=== PATIENT | male | born 1960 | race Caucasian/White ===

== ENCOUNTER 2018-04-09 02:18 | Emergency (ER) | payer SELFPAY ==
[~2018-04-09] VITALS: Ht 170.2 cm; Wt 88.0 kg
[~2018-04-09 02:18] MED LIST: LISI10TA3 PO; MUPI2%T TOPICAL
[2018-04-09 02:21] VITALS: BP 140/78; PULSE 78; RESP 20; TEMP 97.4; O2SAT 94
--- NOTE | 2018-04-09 02:34 | PD ---
HPI Chief Complaint: Respiratory Symptoms Time Seen by Provider: 02:31 Travel History International Travel<30 days: No Contact w/Intl Traveler<30days: No Traveled to known affect area: No History of Present Illness HPI 57-year-old male presents complaining of "bronchitis." He reports that he has a chronic cough for the past 4 months. Over the past several days the cough has become worse. The cough is primarily dry but occasionally productive with clear sputum. Associated wheezing. Symptoms are moderate with no aggravating or relieving factors. Denies any chest pain, shortness of breath, abdominal pain, fevers or chills. He has no other complaints at this time. PFSH Past Medical History Blood Disorders: No Cancer: No Cardiovascular Problems: Yes (HTN) Chemotherapy: No Diminished Hearing: No Hypertension: Yes Immune Disorder: No Kidney Stones: Yes Musculoskeletal: No Neurologic: No Psychiatric: No Reproductive: No Respiratory: No Immunizations Current: Yes Radiation Therapy: No Tetanus Vaccination: Unknown Influenza Vaccination: No : 3 Para: 2 Past Surgical History Surgical History: No Previous Surgery AICD: No Arteriovenous Shunt: No Insulin Pump: No Joint Replacement: No Pacemaker: No Other Surgery: Yes Social History Alcohol Use: Yes (ONCE A WEEK) Tobacco Use: Yes (1PPD) Substance Use: Yes (MARIJUANA) Allergies-Medications (Allergen,Severity, Reaction): Coded Allergies: No Known Allergies (Verified Adverse Reaction, Unknown, 04/09/18) Reported Meds & Prescriptions Reported Meds & Active Scripts Active Proair Hfa 8.5 GM Inh (Albuterol Sulfate) 90 Mcg/Act Aer 2 Puff INH Q4-6H PRN 108 mcg/actuation Azithromycin 250 Mg Tab 250 Mg PO DIRECTED Take 2 tabs (500 mg) on day 1 then 1 tab daily x 4 days. Prednisone 20 Mg Tab 20 Mg PO BID 5 Days Reported Lisinopril 10 Mg Tab 10 Mg PO DAILY Review of Systems Except as stated in HPI: all other systems reviewed are Neg Physical Exam Narrative GENERAL: Well-developed well-nourished male in no acute distress SKIN: Warm and dry. HEAD: Atraumatic. Normocephalic. EYES: Pupils equal and round. No scleral icterus. No injection or drainage. ENT: No nasal bleeding or discharge. Mucous membranes pink and moist. NECK: Trachea midline. No JVD. CARDIOVASCULAR: Regular rate and rhythm. No murmur appreciated. RESPIRATORY: No accessory muscle use. Mild wheezing bilaterally. No crackles. GASTROINTESTINAL: Abdomen soft, non-tender, nondistended. Hepatic and splenic margins not palpable. MUSCULOSKELETAL: No obvious deformities. No clubbing. No cyanosis. No edema. NEUROLOGICAL: Awake and alert. No obvious cranial nerve deficits. Motor grossly within normal limits. Normal speech. PSYCHIATRIC: Appropriate mood and affect; insight and judgment normal. Data Data Last Documented VS Vital Signs Date Time Temp Pulse Resp B/P (MAP) Pulse Ox O2 Delivery O2 Flow Rate FiO2 04/09/18 02:21 97.4 78 20 140/78 (98) 94 Orders Orders Albuterol-Ipratropium Neb (Duoneb Neb) (04/09/18 02:45) Prednisone (Deltasone) (04/09/18 02:45) Ed Discharge Order (04/09/18 03:42) [facility] Medical Decision Making Medical Screen Exam Complete: Yes Emergency Medical Condition: Yes Medical Record Reviewed: Yes Differential Diagnosis Bronchitis, COPD, pneumonia, influenza, reactive airway disease, pulmonary embolism Narrative Course The patient will be given DuoNeb treatment and prednisone here. Plan is to discharge him with prescriptions for an albuterol inhaler, prednisone and azithromycin. Diagnosis Primary Impression: Bronchitis Additional Instructions: Avoid tobacco product use. Medication as prescribed. Return for any emergent medical conditions. Med/Other Pt SpecificInfo: Prescription(s) given Scripts Albuterol 8.5 GM Inh (Proair Hfa 8.5 GM Inh) 90 Mcg/Act Aer 2 PUFF INH Q4-6H Y for SHORTNESS OF BREATH, #1 INHALER 0 Refills 108 mcg/actuation Prov: Uday Lozano MD 04/09/18 Azithromycin (Azithromycin) 250 Mg Tab 250 MG PO DIRECTED for Infection, #6 TAB 0 Refills Take 2 tabs (500 mg) on day 1 then 1 tab daily x 4 days. Prov: Uday Lozano MD 04/09/18 Prednisone (Prednisone) 20 Mg Tab 20 MG PO BID for 5 Days, #10 TAB 0 Refills Prov: Uday Lozano MD 04/09/18 Disposition: 01 DISCHARGE HOME Condition: Stable Shabbir Carranza Apr 09, 2018 02:34
[2018-04-09] MEDS ORDERED: ALBUAER3 INH (02:37)
[2018-04-09] MEDS ORDERED: PRED20 PO (02:37)
[2018-04-09] MEDS ORDERED: AZIT250T3 PO (02:37)
[2018-04-09] MEDS ORDERED: predniSONE 20 MG TAB PO ONE (02:45)
[2018-04-09] MEDS: RESP: ALBUTEROL 2.5 MG/IPRATROPIUM 0.5 MG NEB (SCH) INH (02:45)
== END 2018-04-09 04:44 | disposition home or self-care (01) ==
LOC: NEPD 02:18
DX: J40 Bronchitis, not specified as acute or chronic (principal); I10 Essential (primary) hypertension; F12.90 Cannabis use, unspecified, uncomplicated; F17.200 Nicotine dependence, unspecified, uncomplicated
CPT/HCPCS: 94640; 94664; 99283; J7512